=== PATIENT | female | born 1975 | race Caucasian/White ===

== ENCOUNTER 2018-05-23 06:13 | Inpatient (IN) | payer OTHER ==
[2018-05-23] MEDS: CEFAZOLIN 2 GM/50 ML (PMX) 50 ML IVPB (06:30)
[2018-05-23] MEDS: SOD CHLORIDE 0.9% 1,000 ML IV (06:50)
[2018-05-23] MEDS ORDERED: DESFLURANE 15 MIN (07:00)
[2018-05-23 07:07] LABS: ADD MAN DIFF? NO
[2018-05-23 07:11] LABS: WHITE BLOOD COUNT 6.9 10^3/ul (4.8-10.8)
[2018-05-23 07:11] LABS: BASOPHIL # 0.1 10^3/ul (0.0-0.1); BASOPHILS % 0.7 % (0.0-2.0); EOSINOPHILS # 0.2 10^3/ul (0.0-0.5); EOSINOPHILS % 2.9 % (0.0-7.0); HEMATOCRIT 38.6 % (37.0-47.0); HEMOGLOBIN 13.2 g/dl (12.0-16.0); LYMPHOCYTES # 1.8 10^3/ul (0.8-2.9); LYMPHOCYTES % 26.3 % (15.0-51.0); MEAN CORPUSCULAR HEMOGLOBIN 26.8 pg (29.0-33.0); MEAN CORPUSCULAR HGB CONC 34.2 g/dl (32.0-37.0); MEAN CORPUSCULAR VOLUME 78.3 fl (82.0-101.0); MONOCYTE # 0.5 10^3/ul (0.3-0.9); MONOCYTES % 7.2 % (0.0-11.0); NEUTROPHIL # 4.3 10^3/ul (1.6-7.5); NEUTROPHILS % 62.8 % (39.0-77.0); PLATELET COUNT 310 10^3/UL (140-415); RED BLOOD COUNT 4.93 10^6/ul (4.20-5.40); RED CELL DISTRIBUTION WIDTH 21.8 % (11.5-14.5)
[2018-05-23 07:27] LABS: INR 0.93; PROTIME 12.5 Sec (11.9-14.9)
[2018-05-23 07:28] LABS: PARTIAL THROMBOPLASTIN TIME 29.7 Sec (23.0-35.0)
[2018-05-23 07:29] LABS: ADD UMIC YES; UR ASCORBIC ACID NEGATIVE (NEGATIVE); UR BACTERIA MANY /HPF (NONE SEEN); UR BILIRUBIN (Dip) NEGATIVE (NEGATIVE); UR BLOOD (Dip) 3+ mg/dL (NEGATIVE); UR CLARITY SLIGHTLY CLOUDY (CLEAR); UR COLOR YELLOW (YELLOW); UR GLUCOSE (Dip) NEGATIVE (NEGATIVE); UR KETONES (Dip) NEGATIVE (NEGATIVE); UR LEUKOCYTE ESTERASE (Dip) TRACE Leu/ul (NEGATIVE); UR MUCUS FEW /HPF (NONE SEEN); UR NITRITE (Dip) POSITIVE (NEGATIVE); UR RBC 9 /HPF (0-5); UR SPECIFIC GRAVITY (Dip) 1.018 (1.003-1.030); UR SQUAMOUS EPITHELIAL CELL FEW /HPF (FEW); UR TOTAL PROTEIN (Dip) NEGATIVE (NEGATIVE); UR UROBILINOGEN (Dip) NEGATIVE (NEGATIVE); UR WBC 7 /HPF (0-5)
[2018-05-23 07:43] LABS: ALANINE AMINOTRANSFERASE 14 IU/L (13-69); ALBUMIN 4.5 g/dl (3.3-4.9); ALKALINE PHOSPHATASE 69 IU/L (42-121); ANION GAP 11 (5-13); ASPARTATE AMINO TRANSFERASE 28 IU/L (15-46); BILIRUBIN,INDIRECT 0.9 mg/dl (0-1.1); BILIRUBIN,TOTAL 0.9 mg/dl (0.2-1.3); BLOOD UREA NITROGEN 10 mg/dl (7-20); CALCIUM 9.6 mg/dl (8.4-10.2); CARBON DIOXIDE 22 mmol/L (21-31); CHLORIDE 107 mmol/L (97-110); CREATININE 0.52 mg/dl (0.44-1.00); Estimated GFR > 60 mL/min (>60); GLUCOSE 97 mg/dl (70-220); POTASSIUM 3.8 mmol/L (3.5-5.1); SODIUM 140 mmol/L (135-144); TOTAL PROTEIN 7.5 g/dl (6.1-8.1)
[2018-05-23] MEDS ORDERED: ONDANSETRON 4 MG INJ IV ×2 (08:00→10:00)
[2018-05-23] MEDS ORDERED: MIDAZOLAM 1 MG/ML 2 ML INJ IV (08:00)
[2018-05-23] MEDS ORDERED: EPHEDrine SULFATE 50 MG/5 ML SYG IV (08:00)
[2018-05-23] MEDS ORDERED: OXYCODONE/ACETAMINOPHEN (5/325) TAB PO ×2 (08:00)
[2018-05-23] MEDS ORDERED: ALBUTEROL 0.083% (NEB) 2.5 MG/3 ML AMP HHN (08:00)
[2018-05-23] MEDS ORDERED: FENTAnyl 50 MCG/ML VIAL IV ×3 (08:00)
[2018-05-23] MEDS ORDERED: MEPERIDINE 25 MG INJ IV (08:00)
[2018-05-23] MEDS ORDERED: IPRATROPIUM (NEB) 0.5 MG/2.5 ML AMP HHN (08:00)
[2018-05-23] MEDS ORDERED: HYDROmorphONE 1 MG/5 ML IV SYRINGE IV ×2 (08:00)
[2018-05-23] MEDS ORDERED: TRIMETHOBENZAMIDE 100 MG/ML VIAL IM (08:00)
[2018-05-23] MEDS ORDERED: hydrALAzine 20 MG INJ IV (08:00)
[2018-05-23] MEDS ORDERED: LABETALOL HCL 20MG INJ IV (08:00)
[2018-05-23] MEDS ORDERED: DIPHENHYDRAMINE 50 MG INJ IV (08:00)
[2018-05-23] MEDS ORDERED: CEFAZOLIN 1 GM INJ (08:06)
[2018-05-23] MEDS ORDERED: ONDANSETRON 4 MG INJ (08:06)
[2018-05-23] MEDS ORDERED: MIDAZOLAM 1 MG/ML 2 ML INJ (08:06)
[2018-05-23] MEDS ORDERED: PROPOFOL 20 ML (08:06)
[2018-05-23] MEDS ORDERED: NEOSTIGMINE 3 MG/3 ML SYRINGE (08:06)
[2018-05-23] MEDS ORDERED: ROCURONIUM 50 MG INJ (08:06)
[2018-05-23] MEDS ORDERED: FENTAnyl 50 MCG/ML VIAL ×3 (08:06→09:09)
[2018-05-23] MEDS ORDERED: GLYCOPYRROLATE 0.4 MG INJ (08:06)
[2018-05-23] MEDS ORDERED: SUGAMMADEX SODIUM 200 MG/2 ML VIAL IV (09:43)
[2018-05-23] MEDS ORDERED: ACETAMINOPHEN 325 MG TAB PO (10:00)
[2018-05-23] MEDS: HYDROmorphONE 1 MG/5 ML IV SYRINGE IV (10:16)
[2018-05-23] MEDS: D5W-0.45 NACL + KCL 20 MEQ 1,000 ML IV ×3 (13:12→22:50)
[2018-05-23] MEDS: HYDROmorphONE 1 MG/ML SYG SC (15:47)
[2018-05-23] MEDS: HYDROCODONE/APAP (5/325) TAB PO (22:56)
[2018-05-24] MEDS: D5W-0.45 NACL + KCL 20 MEQ 1,000 ML IV (08:53)
[2018-05-24] MEDS: HYDROCODONE/APAP (5/325) TAB PO ×2 (08:53→17:12)
[2018-05-24] MEDS: HYDROmorphONE 1 MG/ML SYG SC (21:03)
[2018-05-25] MEDS: HYDROCODONE/APAP (5/325) TAB PO ×2 (05:40→16:57)
[2018-05-25] MEDS: HYDROmorphONE 1 MG/ML SYG SC (09:52)
[2018-05-25] MEDS: MAGNESIUM HYDROXIDE 30ML CUP PO (16:55)
== END 2018-05-25 17:15 | disposition home or self-care (01) | DRG 581 ==
LOC: REC 06:13 → MS1 11:44
PROC: 0HBU0ZZ Excision of Left Breast, Open Approach (ICD-10-PCS; principal; 2018-05-23 07:57)
PROC: 07B60ZX Excision of Left Axillary Lymphatic, Open Approach, Diagnostic (ICD-10-PCS; 2018-05-23 07:57)
DX: C50.912 Malignant neoplasm of unspecified site of left female breast (principal); D05.92 Unspecified type of carcinoma in situ of left breast
CPT/HCPCS: 80053; 81001; 85025; 85610; 85730; 88307